=== PATIENT | female | born 1940 | race Caucasian/White ===

== ENCOUNTER 2019-10-04 11:18 | Emergency (ER) | payer OTHER ==
[~2019-10-04] VITALS: Ht 152.4 cm; Wt 76.2 kg
[~2019-10-04 11:18] MED LIST: ARICEPT10 MG PO; CATAFLAN PO; CIPRO500 MG PO; DICLOFENAC POTA50 MG PO; FLAGYL500MG PO; IMODIUM A-D2 M2 PO; INDERAL LA80 MG PO; INTEGRA F CAPS1 EACH PO; INTESTINEX1 CA1 PO; INTESTINEX680 MG PO; OMEPRAZOLE20 MG PO; OXYBUTYNIN PO; OXYC1TAB9 PO; PERCOCET 5-3251 EACH PO; PROBIOTIC1 EACH PO; QUESTRAN PACKET4 GM PO; SYNTHROID100 MCG PO; ULTRACET PO; ZOLOFT100 MG PO
[2019-10-04] MEDS ORDERED: CLONAZEPAM1 GM MC (12:00)
[2019-10-04] MEDS ORDERED: INDERAL LA160 MG (12:00)
[2019-10-04] MEDS ORDERED: MONODOX100 MG PO (12:01)
[2019-10-04] MEDS ORDERED: ZANTAC300 MG PO (12:01)
[2019-10-04] MEDS ORDERED: CAMBIA50 MG (12:01)
[2019-10-04] MEDS ORDERED: TOLTERODINE TART4 MG PO (12:02)
[2019-10-04] MEDS ORDERED: ACETAMINOPHEN500 M1 PO (12:02)
[2019-10-04] MEDS ORDERED: LOSARTAN POTAS100 MG PO (12:02)
[2019-10-04] MEDS ORDERED: LEXAPRO20 MG PO (12:02)
[2019-10-04] MEDS ORDERED: TRAZODONE HCL150 MG PO (12:03)
[2019-10-04] MEDS ORDERED: CLARITIN10 M1 PO (12:03)
[2019-10-04] MEDS ORDERED: AZELASTINE HCL6 ML (12:03)
== END 2019-10-04 13:10 | disposition home or self-care (01) ==
LOC: ER 11:18
DX: L02.212 Cutaneous abscess of back [any part, except buttock and flank] (principal)